=== PATIENT | female | born 1965 | race Caucasian/White ===

== ENCOUNTER 2016-06-25 16:46 | Emergency (ER) | payer OTHER ==
[~2016-06-25 16:46] MED LIST: COREG 12.5MG12.5 MG PO; DILAUDID 2 MG TA2 MG PO; KAYEXALATE POWDE1 GM PO; KEPPRA750 MG PO; LEVAQUIN500 MG PO; PHENERGAN 25 MG25 M1 PO; PHENERGAN25 MG PR; PREMARIN1.25 MG PO; TEMAZEPAM30 MG PO; VITAMIN D50000 UNIT PO
[2016-06-25 20:23] LABS: HEMOGLOBIN 10.5 gm/dl (12.3-15.3); RED BLOOD COUNT 3.49 M/UL (4.00-5.10)
[2016-06-25 20:45] LABS: BUN/CREATININE RATIO 22 (0-10)
[2017-01-08] MEDS ORDERED: KEPPRA750 MG PO (02:06)
[2017-01-08] MEDS ORDERED: FERROUS SULFAT325 M2 PO (02:06)
[2017-01-08] MEDS ORDERED: REGLAN 10 MG TA10 MG PO (02:07)
[2017-01-08] MEDS ORDERED: PROTONIX40 MG PO (02:10)
[2017-01-08] MEDS ORDERED: VITAMIN D1000 UNIT PO (02:13)
== END 2016-06-25 23:15 | disposition home or self-care (01) ==
LOC: ER1 16:46
PROVIDERS: Emergency Medicine
DX: K29.00 Acute gastritis without bleeding (principal); Z88.1 Allergy status to other antibiotic agents; Z88.5 Allergy status to narcotic agent
CPT/HCPCS: 36415; 80053; 83690; 85025; 96361; 96374; 96375; 96376; 99284; C9113; J2270; J2405

== ENCOUNTER 2020-06-07 14:44 | Inpatient (IN) | payer OTHER ==
[~2020-06-07] VITALS: Ht 162.6 cm; Wt 59.0 kg
[~2020-06-07 14:44] MED LIST changes: +ALENDRONATE SOD70 MG PO; +B-121000 MCG PO; +CALCIUM 600 +1 EAC3 PO; +COLACE100 MG PO; +CYCLOBENZAPRINE10 MG PO; +DYAZIDE 37.5/251 EA PO; +FEOSOL325 MG PO; +FERROUS SULFAT325 M2 PO; +FLAGYL500 MG PO; +FLEXERIL 10 MG10 MG PO; +HYDROXYZINE HCL10 MG PO; +K-DUR TAB 20 M20 MEQ PO; +LACTULOSE20 GM/30 M PO; +LEVOTHYROXINE100 MCG PO; +MACROBID 100 M100 MG PO; +NEURONTIN 300300 MG PO; +OMNICEF 300 MG300 MG PO; +PERCOCET 5-3251 EACH PO; +PHENERGAN12.5 MG PR; +PROBIOTIC1 EAC1 PO; +PROBIOTIC1 EAC3 PO; +PROTONIX40 MG PO; +REGLAN 10 MG TA10 MG PO; +RESTORIL 30 MG30 MG PO; +RESTORIL30 MG PO; +SENOKOT-S TABL1 EACH PO; +TYLENOL 500 MG500 MG PO; +VISTARIL 50 MG50 MG PO; +VITAMIN B-121000 MCG PO; +VITAMIN B12-FO1 EACH PO; +VITAMIN D 40400 UNIT PO; +VITAMIN D1000 UNIT PO; +VITAMIN D31000 UNI1 PO; +ZOFRAN ODT 4 MG4 MG PO; +ZOFRAN ODT 4 MG4 MG SL; +ZOFRAN4 MG PO
[2020-06-07 17:29] LABS: HEMOGLOBIN 12.2 gm/dl (12.3-15.3); RED BLOOD COUNT 3.64 M/UL (4.00-5.10)
[2020-06-07 17:57] LABS: BUN/CREATININE RATIO 31 (0-10)
[2020-06-08 04:56] LABS: HEMOGLOBIN 10.2 gm/dl (12.3-15.3); RED BLOOD COUNT 3.11 M/UL (4.00-5.10); WHITE BLOOD COUNT 19.5 K/UL (4.5-11.0)
[2020-06-08 05:13] LABS: BUN/CREATININE RATIO 32 (0-10)
[2020-06-09 04:41] LABS: HEMOGLOBIN 9.5 gm/dl (12.3-15.3); RED BLOOD COUNT 2.84 M/UL (4.00-5.10); WHITE BLOOD COUNT 12.6 K/UL (4.5-11.0)
[2020-06-09 05:05] LABS: BUN/CREATININE RATIO 22 (0-10)
[2020-06-10 03:11] LABS: ACINETOBACTER BAUMANNII Not Detected (Negative); CANDIDA ALBICANS Not Detected (Negative); CANDIDA KRUSEI Not Detected (Negative); CANDIDA TROPICALIS Not Detected (Negative); ENTEROCOCCUS Not Detected (Negative); ESCHERICHIA COLI Not Detected (Negative); HAEMOPHILUS INFLUENZAE Not Detected (Negative); KLEBSIELLA OXYTOCA Not Detected (Negative); KLEBSIELLA PNEUMONIAE Not Detected (Negative); KPC-CARBAPENEM-RESISTANCE GENE Not Detected (Negative); PROTEUS Not Detected (Negative); PSEUDOMONAS AERUGINOSA Not Detected (Negative); SERRATIA MARCESANS Not Detected (Negative); STAPHYLOCOCCUS Not Detected (Negative); STAPHYLOCOCCUS AUREUS Not Detected (Negative); STREP AGALACTIAE (GROUP B) Not Detected (Negative); STREP PYOGENES (GROUP A) Not Detected (Negative); STREPTOCOCCUS Not Detected (Negative); mecA (METHICILLIN RESIST GENE Not Detected (Negative); vanA/B (VANCOMYCIN RESIST GENE Not Detected (Negative)
[2020-06-10 04:31] LABS: RED BLOOD COUNT 2.71 M/UL (4.00-5.10)
[2020-06-10 04:43] LABS: WHITE BLOOD COUNT 8.3 K/UL (4.5-11.0)
[2020-06-10 04:49] LABS: BUN/CREATININE RATIO 20 (0-10)
[2020-06-11 04:54] LABS: RED BLOOD COUNT 2.76 M/UL (4.00-5.10); WHITE BLOOD COUNT 6.4 K/UL (4.5-11.0)
[2020-06-11 05:23] LABS: BUN/CREATININE RATIO 25 (0-10)
[2020-06-12 05:22] LABS: BUN/CREATININE RATIO 27 (0-10)
[2020-06-12] MEDS ORDERED: PROLOPRIM 100100 MG PO (16:01)
[2020-06-13 03:59] LABS: BUN/CREATININE RATIO 30 (0-10)
[2020-06-14 03:12] LABS: WHITE BLOOD COUNT 5.5 K/UL (4.5-11.0)
[2020-06-14 03:13] LABS: RED BLOOD COUNT 3.08 M/UL (4.00-5.10)
[2020-06-14 03:40] LABS: BUN/CREATININE RATIO 34 (0-10)
[2020-06-14] MEDS ORDERED: PERCOCET 5/325 T1 EA PO (11:27)
[2020-06-14] MEDS ORDERED: RESTORIL 30 MG30 MG PO (16:54)
== END 2020-06-14 20:34 | disposition home or self-care (01) | DRG 698 ==
LOC: ER1 14:44 → M/S 22:44 → CDU 22:44 → M/S 06-08 08:18
PROVIDERS: Family Medicine; Internal Medicine; Physician Assistant Medical; ADMIT Internal Medicine
DX: N99.521 Infection of incontinent external stoma of urinary tract (principal); A41.51 Sepsis due to Escherichia coli [E. coli]; N10 Acute pyelonephritis; Z16.12 Extended spectrum beta lactamase (ESBL) resistance; N13.30 Unspecified hydronephrosis; B96.20 Unspecified Escherichia coli [E. coli] as the cause of diseases classified elsewhere; Z20.822 Contact with and (suspected) exposure to COVID-19; G40.909 Epilepsy, unspecified, not intractable, without status epilepticus; F41.9 Anxiety disorder, unspecified; E87.6 Hypokalemia; E03.9 Hypothyroidism, unspecified; E83.52 Hypercalcemia; E11.9 Type 2 diabetes mellitus without complications; G31.89 Other specified degenerative diseases of nervous system; R10.9 Unspecified abdominal pain; R11.2 Nausea with vomiting, unspecified; Z79.899 Other long term (current) drug therapy; Z90.49 Acquired absence of other specified parts of digestive tract; Z88.1 Allergy status to other antibiotic agents; Z88.5 Allergy status to narcotic agent; Z85.41 Personal history of malignant neoplasm of cervix uteri; Z82.49 Family history of ischemic heart disease and other diseases of the circulatory system; Z79.2 Long term (current) use of antibiotics; Z90.710 Acquired absence of both cervix and uterus; Z83.3 Family history of diabetes mellitus; Z80.9 Family history of malignant neoplasm, unspecified; Z82.3 Family history of stroke; Z84.1 Family history of disorders of kidney and ureter
CPT/HCPCS: 36415; 71045; 80048; 80053; 80202; 81001; 82962; 83605; 84100; 85025; 85652; 87040; 87077; 87086; 87150; 87186; 96365; 96375; 96376; 99285; G0378; J1642; J1650; J2185; J2270; J2405; J3370; J7030; J7070; Q9967; U0002

== ENCOUNTER 2020-06-24 17:18 | Emergency (ER) | payer OTHER ==
[~2020-06-24 17:18] MED LIST changes: +PERCOCET 5/325 T1 EA PO; +PROLOPRIM 100100 MG PO
[2020-06-24 21:59] LABS: HEMOGLOBIN 11.7 gm/dl (12.3-15.3); RED BLOOD COUNT 3.51 M/UL (4.00-5.10); WHITE BLOOD COUNT 10.5 K/UL (4.5-11.0)
[2020-06-24 22:19] LABS: BUN/CREATININE RATIO 20 (0-10)
[2020-06-24 23:51] LABS: ADENOVIRUS F 40/41 Not Detected (Negative); ASTROVIRUS Not Detected (Negative); CAMPYLOBACTER Not Detected (Negative); CLOSTRIDIUM DIFFICILE TOX A/B Not Detected (Negative); CRYPTOSPORIDIUM Not Detected (Negative); E.COLI 0157 Not Detected (Negative); ENTAMOEBA HISTOLYTICA Not Detected (Negative); ENTEROAGGREGATIVE E.COLI (EAEC Not Detected (Negative); ENTEROPATHOGENIC E.COLI (EPEC) Not Detected (Negative); ENTEROTOXIGENIC E.COLI (ETEC) Not Detected (Negative); GIARDIA LAMBLIA Not Detected (Negative); NOROVIRUS GI/GII Not Detected (Negative); PLESIOMONAS SHIGELLOIDES Not Detected (Negative); ROTOVIRUS A Not Detected (Negative); SALMONELLA Not Detected (Negative); SAPOVIRUS Not Detected (Negative); SHIG/ENTEROINVAS.ECOLI (EIEC) Not Detected (Negative); SHIGA-LIK TOX.PRO.E.COLI (STEC Not Detected (Negative); VIBRIO Not Detected (Negative); VIBRIO CHOLERAE Not Detected (Negative); YERSINIA ENTEROCOLITICA Not Detected (Negative)
[2020-06-25] MEDS ORDERED: MACROBID 100 M100 MG PO (00:58)
== END 2020-06-25 01:32 | disposition home or self-care (01) ==
LOC: ER1 17:18
PROVIDERS: Emergency Medicine; Physician Assistant
DX: N39.0 Urinary tract infection, site not specified (principal); R19.7 Diarrhea, unspecified; K92.1 Melena; E11.9 Type 2 diabetes mellitus without complications; C76.0 Malignant neoplasm of head, face and neck; G40.909 Epilepsy, unspecified, not intractable, without status epilepticus
CPT/HCPCS: 80053; 81001; 83605; 85025; 87040; 87449; 87507; 96374; 96375; 96376; 99284; J2270; J2405; Q9967

== ENCOUNTER 2020-06-29 18:12 | Inpatient (IN) | payer OTHER ==
[~2020-06-29] VITALS: Ht 162.6 cm; Wt 59.0 kg
[2020-06-29 19:11] LABS: HEMOGLOBIN 10.7 gm/dl (12.3-15.3); RED BLOOD COUNT 3.27 M/UL (4.00-5.10); WHITE BLOOD COUNT 8.5 K/UL (4.5-11.0)
[2020-06-29 19:28] LABS: BUN/CREATININE RATIO 16 (0-10)
[2020-06-29] MEDS ORDERED: SEROQUEL TAB 2525 MG PO (21:55)
[2020-06-29] MEDS ORDERED: ZOLOFT25 MG PO (21:56)
[2020-06-29] MEDS ORDERED: KLONOPIN TAB 00.5 MG PO (21:56)
[2020-06-30 03:26] LABS: HEMOGLOBIN 10.6 gm/dl (12.3-15.3); RED BLOOD COUNT 3.24 M/UL (4.00-5.10); WHITE BLOOD COUNT 10.6 K/UL (4.5-11.0)
[2020-06-30 07:22] LABS: BUN/CREATININE RATIO 17 (0-10)
[2020-07-01 03:05] LABS: HEMOGLOBIN 8.8 gm/dl (12.3-15.3); WHITE BLOOD COUNT 10.5 K/UL (4.5-11.0)
[2020-07-01 03:11] LABS: RED BLOOD COUNT 2.67 M/UL (4.00-5.10)
[2020-07-01 03:30] LABS: BUN/CREATININE RATIO 18 (0-10)
[2020-07-02 03:12] LABS: HEMOGLOBIN 8.4 gm/dl (12.3-15.3); RED BLOOD COUNT 2.58 M/UL (4.00-5.10); WHITE BLOOD COUNT 9.9 K/UL (4.5-11.0)
[2020-07-02 03:29] LABS: BUN/CREATININE RATIO 14 (0-10)
[2020-07-03 03:41] LABS: HEMOGLOBIN 9.2 gm/dl (12.3-15.3); RED BLOOD COUNT 2.81 M/UL (4.00-5.10)
[2020-07-03 03:53] LABS: WHITE BLOOD COUNT 7.3 K/UL (4.5-11.0)
[2020-07-03 04:01] LABS: BUN/CREATININE RATIO 12 (0-10)
[2020-07-04 04:00] LABS: HEMOGLOBIN 9.3 gm/dl (12.3-15.3); RED BLOOD COUNT 2.84 M/UL (4.00-5.10); WHITE BLOOD COUNT 6.6 K/UL (4.5-11.0)
[2020-07-04 04:21] LABS: BUN/CREATININE RATIO 17 (0-10)
[2020-07-05 02:49] LABS: HEMOGLOBIN 9.9 gm/dl (12.3-15.3); RED BLOOD COUNT 3.01 M/UL (4.00-5.10); WHITE BLOOD COUNT 5.9 K/UL (4.5-11.0)
[2020-07-05 03:44] LABS: BUN/CREATININE RATIO 22 (0-10)
[2020-07-05] MEDS ORDERED: ZOFRAN ODT 4 MG4 MG PO (09:22)
[2020-07-05] MEDS ORDERED: INVANZ 1 GM VIAL1 GM IV (09:22)
== END 2020-07-05 14:20 | disposition home or self-care (01) | DRG 698 ==
LOC: ER1 18:12 → M/S 21:23 → CDU 21:23 → M/S 23:34
PROVIDERS: Internal Medicine; Physician Assistant; ADMIT Internal Medicine
DX: N99.521 Infection of incontinent external stoma of urinary tract (principal); A41.51 Sepsis due to Escherichia coli [E. coli]; N10 Acute pyelonephritis; Z16.12 Extended spectrum beta lactamase (ESBL) resistance; I10 Essential (primary) hypertension; F41.9 Anxiety disorder, unspecified; F32.9 Major depressive disorder, single episode, unspecified; Z20.822 Contact with and (suspected) exposure to COVID-19; M47.9 Spondylosis, unspecified; E11.9 Type 2 diabetes mellitus without complications; G40.909 Epilepsy, unspecified, not intractable, without status epilepticus; E03.9 Hypothyroidism, unspecified; D63.8 Anemia in other chronic diseases classified elsewhere; E87.6 Hypokalemia; Y83.8 Other surgical procedures as the cause of abnormal reaction of the patient, or of later complication, without mention of misadventure at the time of the procedure; Z98.1 Arthrodesis status; Z88.6 Allergy status to analgesic agent; Z88.1 Allergy status to other antibiotic agents; Z85.41 Personal history of malignant neoplasm of cervix uteri; Z88.5 Allergy status to narcotic agent; Z88.8 Allergy status to other drugs, medicaments and biological substances; Z82.49 Family history of ischemic heart disease and other diseases of the circulatory system
CPT/HCPCS: 36415; 71045; 80048; 80053; 81001; 83540; 83550; 83605; 85025; 86140; 87040; 87077; 87086; 87186; 87449; 96374; 96375; 96376; 99284; J1335; J1642; J1650; J2185; J2270; J2405; J3480; Q9967; U0002

== ENCOUNTER → 2020-08-10 | Outpatient (CLI) | payer OTHER ==
[~2020-08-10] MED LIST changes: +INVANZ 1 GM VIAL1 GM IV; +KLONOPIN TAB 00.5 MG PO; +SEROQUEL TAB 2525 MG PO; +ZOLOFT25 MG PO
== END ==
LOC: RAD 08-03 08:00 → EDSTATUS 08:00
DX: N13.30 Unspecified hydronephrosis (principal)
CPT/HCPCS: 74455; Q9958

== ENCOUNTER 2020-09-09 09:04 | Emergency (ER) | payer OTHER ==
[2020-09-09 11:09] LABS: HEMOGLOBIN 11.9 gm/dl (12.3-15.3); RED BLOOD COUNT 3.8 M/UL (4.00-5.10); WHITE BLOOD COUNT 4.9 K/UL (4.5-11.0)
[2020-09-09 11:39] LABS: BUN/CREATININE RATIO 20 (0-10)
[2020-09-09] MEDS ORDERED: ZOFRAN4 MG PO (14:25)
[2020-09-09] MEDS ORDERED: FLAGYL500 MG PO (14:25)
[2020-09-12 04:45] LABS: ACINETOBACTER BAUMANNII Not Detected (Negative); CANDIDA ALBICANS Not Detected (Negative); CANDIDA KRUSEI Not Detected (Negative); CANDIDA TROPICALIS Not Detected (Negative); ENTEROCOCCUS Not Detected (Negative); ESCHERICHIA COLI Not Detected (Negative); HAEMOPHILUS INFLUENZAE Not Detected (Negative); KLEBSIELLA OXYTOCA Not Detected (Negative); KLEBSIELLA PNEUMONIAE Not Detected (Negative); KPC-CARBAPENEM-RESISTANCE GENE Not Detected (Negative); PROTEUS Not Detected (Negative); PSEUDOMONAS AERUGINOSA Not Detected (Negative); SERRATIA MARCESANS Not Detected (Negative); STAPHYLOCOCCUS Not Detected (Negative); STAPHYLOCOCCUS AUREUS Not Detected (Negative); STREP AGALACTIAE (GROUP B) Not Detected (Negative); STREP PYOGENES (GROUP A) Not Detected (Negative); STREPTOCOCCUS Not Detected (Negative); mecA (METHICILLIN RESIST GENE Not Detected (Negative); vanA/B (VANCOMYCIN RESIST GENE Not Detected (Negative)
== END 2020-09-09 15:00 | disposition home or self-care (01) ==
LOC: ER1 09:04
PROVIDERS: Physician Assistant Medical
DX: R10.9 Unspecified abdominal pain (principal); R11.2 Nausea with vomiting, unspecified; I11.9 Hypertensive heart disease without heart failure; E11.9 Type 2 diabetes mellitus without complications; E03.9 Hypothyroidism, unspecified; Z90.49 Acquired absence of other specified parts of digestive tract; Z90.710 Acquired absence of both cervix and uterus; Z88.5 Allergy status to narcotic agent; Z88.8 Allergy status to other drugs, medicaments and biological substances; Z79.899 Other long term (current) drug therapy
CPT/HCPCS: 71045; 80053; 81001; 83605; 85025; 87040; 87077; 87150; 96374; 99284; J2405; J7030; Q9967

== ENCOUNTER 2020-09-12 20:52 | Emergency (ER) | payer OTHER ==
[2020-09-13 00:43] LABS: HEMOGLOBIN 12.8 gm/dl (12.3-15.3); RED BLOOD COUNT 4.25 M/UL (4.00-5.10); WHITE BLOOD COUNT 4.8 K/UL (4.5-11.0)
[2020-09-13 01:05] LABS: BUN/CREATININE RATIO 23 (0-10)
== END 2020-09-13 01:41 | disposition short-term general hospital (02) ==
LOC: ER1 20:52
PROVIDERS: Physician Assistant
DX: B49 Unspecified mycosis (principal); E11.9 Type 2 diabetes mellitus without complications; E03.9 Hypothyroidism, unspecified; Z85.41 Personal history of malignant neoplasm of cervix uteri; Z90.49 Acquired absence of other specified parts of digestive tract; Z88.5 Allergy status to narcotic agent; Z88.1 Allergy status to other antibiotic agents
CPT/HCPCS: 71045; 80053; 83605; 83735; 83880; 84100; 85025; 85610; 85652; 85730; 86140; 87040; 96374; 96375; 99285; J2248; J2270; J2405

== ENCOUNTER 2020-11-21 18:07 | Emergency (ER) | payer OTHER ==
[2020-11-22 03:31] LABS: HEMOGLOBIN 10.1 gm/dl (12.3-15.3); RED BLOOD COUNT 3.39 M/UL (4.00-5.10); WHITE BLOOD COUNT 5.7 K/UL (4.5-11.0)
[2020-11-22 03:56] LABS: BUN/CREATININE RATIO 10 (0-10)
[2020-11-22] MEDS ORDERED: LEVOFLOXACIN750 MG PO (05:37)
== END 2020-11-22 05:50 | disposition home or self-care (01) ==
LOC: ER1 18:07
PROVIDERS: Physician Assistant
DX: E87.6 Hypokalemia (principal); K52.9 Noninfective gastroenteritis and colitis, unspecified; R82.81 Pyuria; I25.2 Old myocardial infarction; E11.9 Type 2 diabetes mellitus without complications; I10 Essential (primary) hypertension; Z87.440 Personal history of urinary (tract) infections; Z20.822 Contact with and (suspected) exposure to COVID-19; Z88.1 Allergy status to other antibiotic agents; Z88.5 Allergy status to narcotic agent; Z90.49 Acquired absence of other specified parts of digestive tract
CPT/HCPCS: 71045; 80053; 81001; 83605; 85025; 87040; 93005; 99285; U0002

== ENCOUNTER 2021-06-06 20:10 | Emergency (ER) | payer OTHER ==
[~2021-06-06 20:10] MED LIST changes: +LEVOFLOXACIN750 MG PO
[2021-06-06] MEDS ORDERED: CYCLOBENZAPRINE10 MG PO (23:50)
[2021-06-06] MEDS ORDERED: HYDROCODON-ACE1 EAC4 PO (23:52)
== END 2021-06-07 00:07 | disposition home or self-care (01) ==
LOC: ER1 20:10
DX: S22.20XA Unspecified fracture of sternum, initial encounter for closed fracture (principal); E11.9 Type 2 diabetes mellitus without complications; Z88.5 Allergy status to narcotic agent; Z88.1 Allergy status to other antibiotic agents; Z85.41 Personal history of malignant neoplasm of cervix uteri; W19.XXXA Unspecified fall, initial encounter; Y92.009 Unspecified place in unspecified non-institutional (private) residence as the place of occurrence of the external cause
CPT/HCPCS: 71045; 96372; 99284; J2360

== ENCOUNTER 2021-10-07 15:42 | Inpatient (IN) | payer OTHER ==
[~2021-10-07] VITALS: Ht 162.6 cm; Wt 59.0 kg
[~2021-10-07 15:42] MED LIST changes: +HYDROCODON-ACE1 EAC4 PO; -SEROQUEL TAB 2525 MG PO; +SEROQUEL100 MG PO; +ZOLOFT100 MG PO; -ZOLOFT25 MG PO
[2021-10-07 17:15] LABS: HEMOGLOBIN 12.3 gm/dl (12.3-15.3); RED BLOOD COUNT 4.05 M/UL (4.00-5.10); WHITE BLOOD COUNT 5.7 K/UL (4.5-11.0)
[2021-10-07 17:45] LABS: BUN/CREATININE RATIO 22 (0-10)
[2021-10-08 03:08] LABS: HEMOGLOBIN 11.4 gm/dl (12.3-15.3); RED BLOOD COUNT 3.81 M/UL (4.00-5.10); WHITE BLOOD COUNT 5.2 K/UL (4.5-11.0)
[2021-10-08 03:28] LABS: BUN/CREATININE RATIO 21 (0-10)
[2021-10-08] MEDS ORDERED: TRIAMTERENE-HC1 EAC3 PO (12:57)
[2021-10-08] MEDS ORDERED: POTASSIUM CHLO10 ME1 PO (13:03)
[2021-10-08] MEDS ORDERED: PROTONIX40 MG PO (13:06)
[2021-10-08] MEDS ORDERED: PRAZOSIN HCL2 MG PO (13:12)
[2021-10-09 02:59] LABS: HEMOGLOBIN 10.4 gm/dl (12.3-15.3); RED BLOOD COUNT 3.53 M/UL (4.00-5.10); WHITE BLOOD COUNT 4.7 K/UL (4.5-11.0)
[2021-10-09 03:21] LABS: BUN/CREATININE RATIO 22 (0-10)
[2021-10-10 03:21] LABS: HEMOGLOBIN 10.4 gm/dl (12.3-15.3); RED BLOOD COUNT 3.45 M/UL (4.00-5.10); WHITE BLOOD COUNT 4.9 K/UL (4.5-11.0)
[2021-10-10 03:51] LABS: BUN/CREATININE RATIO 23 (0-10)
[2021-10-11 04:25] LABS: HEMOGLOBIN 10.3 gm/dl (12.3-15.3); RED BLOOD COUNT 3.33 M/UL (4.00-5.10); WHITE BLOOD COUNT 5.3 K/UL (4.5-11.0)
[2021-10-11 04:55] LABS: BUN/CREATININE RATIO 18 (0-10)
[2021-10-12 02:58] LABS: HEMOGLOBIN 11.2 gm/dl (12.3-15.3); WHITE BLOOD COUNT 5.5 K/UL (4.5-11.0)
[2021-10-12 02:59] LABS: RED BLOOD COUNT 3.73 M/UL (4.00-5.10)
[2021-10-12 03:26] LABS: BUN/CREATININE RATIO 19 (0-10)
[2021-10-13 07:17] LABS: HEMOGLOBIN 10.7 gm/dl (12.3-15.3); RED BLOOD COUNT 3.6 M/UL (4.00-5.10); WHITE BLOOD COUNT 4.3 K/UL (4.5-11.0)
[2021-10-13 07:38] LABS: BUN/CREATININE RATIO 18 (0-10)
[2021-10-13] MEDS ORDERED: LEVOFLOXACIN750 MG PO (08:39)
[2021-10-13] MEDS ORDERED: ZOFRAN ODT 4 MG4 MG PO (08:39)
[2021-10-13] MEDS ORDERED: ACETAMINOPHEN-1 EAC1 PO (08:39)
[2021-10-13] MEDS ORDERED: POLYETHYLENE GL17 GM PO (08:39)
[2021-10-13 11:00] LABS: HEMOGLOBIN 11.4 gm/dl (12.3-15.3); RED BLOOD COUNT 3.75 M/UL (4.00-5.10)
[2021-10-13 11:30] LABS: WHITE BLOOD COUNT 1.2 K/UL (4.5-11.0)
[2021-10-13 12:27] LABS: BUN/CREATININE RATIO 16 (0-10)
[2021-10-14 05:22] LABS: HEMOGLOBIN 9.8 gm/dl (12.3-15.3)
[2021-10-14 05:24] LABS: RED BLOOD COUNT 3.24 M/UL (4.00-5.10); WHITE BLOOD COUNT 13.5 K/UL (4.5-11.0)
[2021-10-14 05:46] LABS: BUN/CREATININE RATIO 19 (0-10)
[2021-10-14 11:14] LABS: HEMOGLOBIN 9.8 gm/dl (12.3-15.3); RED BLOOD COUNT 3.25 M/UL (4.00-5.10); WHITE BLOOD COUNT 11.5 K/UL (4.5-11.0)
[2021-10-15 03:15] LABS: HEMOGLOBIN 9.5 gm/dl (12.3-15.3); RED BLOOD COUNT 3.1 M/UL (4.00-5.10)
[2021-10-15 03:28] LABS: WHITE BLOOD COUNT 7.9 K/UL (4.5-11.0)
[2021-10-15 03:37] LABS: BUN/CREATININE RATIO 21 (0-10)
[2021-10-16 03:55] LABS: HEMOGLOBIN 9.7 gm/dl (12.3-15.3); RED BLOOD COUNT 3.19 M/UL (4.00-5.10)
[2021-10-16 04:14] LABS: WHITE BLOOD COUNT 5.8 K/UL (4.5-11.0)
[2021-10-16 04:51] LABS: BUN/CREATININE RATIO 23 (0-10)
[2021-10-17 02:24] LABS: HEMOGLOBIN 10.1 gm/dl (12.3-15.3); RED BLOOD COUNT 3.33 M/UL (4.00-5.10)
[2021-10-17 03:11] LABS: BUN/CREATININE RATIO 24 (0-10)
[2021-10-17] MEDS ORDERED: RESTORIL 30 MG30 MG PO (08:43)
[2021-10-17] MEDS ORDERED: LEVOFLOXACIN750 MG PO (08:43)
[2021-10-17] MEDS ORDERED: KEPPRA750 MG PO (08:43)
== END 2021-10-17 14:00 | disposition home or self-care (01) | DRG 698 ==
LOC: ER1 15:42 → CDU 22:20 → M/S 22:20
PROVIDERS: Internal Medicine; Physician Assistant; ADMIT Internal Medicine
DX: T83.518A Infection and inflammatory reaction due to other urinary catheter, initial encounter (principal); A41.51 Sepsis due to Escherichia coli [E. coli]; N13.6 Pyonephrosis; D61.818 Other pancytopenia; G40.909 Epilepsy, unspecified, not intractable, without status epilepticus; F41.9 Anxiety disorder, unspecified; E03.9 Hypothyroidism, unspecified; E11.9 Type 2 diabetes mellitus without complications; F39 Unspecified mood [affective] disorder; I10 Essential (primary) hypertension; K59.00 Constipation, unspecified; Z93.8 Other artificial opening status; Z90.710 Acquired absence of both cervix and uterus; Z98.890 Other specified postprocedural states; Z90.89 Acquired absence of other organs; Z90.49 Acquired absence of other specified parts of digestive tract; Z88.5 Allergy status to narcotic agent; Z88.8 Allergy status to other drugs, medicaments and biological substances; Z82.49 Family history of ischemic heart disease and other diseases of the circulatory system; Z92.21 Personal history of antineoplastic chemotherapy
CPT/HCPCS: 36415; 71045; 80048; 80053; 80202; 80307; 81001; 82550; 82553; 82962; 83605; 83735; 84484; 85025; 85027; 87040; 87077; 87086; 87186; 96374; 96375; 99285; J0780; J1650; J2185; J2270; J2405; J3370; J7070; Q9967